=== PATIENT | female | born 1930 | race Caucasian/White ===

== ENCOUNTER 2017-02-18 10:22 | Observation (INO) | payer MEDICARE, BC ==
[~2017-02-18] VITALS: Ht 165.1 cm; Wt 67.3 kg
[~2017-02-18 10:22] MED LIST: ALEVE220 M1 PO; AMOXICILLIN/CL875 MG OR; ASPIRIN EC81 MG PO; ASPIRIN325 MG; BACTRIM DS1 TAB PO; BOOSTRIX IM; CIPROFLOXACN500 MG PO; FIBER FORMULA; HORMONE REPLACEMENT; INVANZ1 GM IJ; MACROBID100 MG PO; METAMUCIL0.52 GM PO; METAMUCIL1.7 G1 PO; MULTIVITAMI1 OR; MULTIVITAMI9 PO; PLAVIX75 MG PO; PRAVASTATIN SOD20 MG PO; PREVACID; PROBIOTIC1 TAB PO; TESSALON200 MG PO; TET/DIP TOX1 ML IM; WHEAT DEXTRIN PO; ZITHROMAX500 MG PO
[2017-02-18 11:27] LABS: URINE BILIRUBIN - DIPSTICK NEGATIVE (NEGATIVE); URINE BLOOD DIPSTICK NEGATIVE (NEGATIVE); URINE COLOR YELLOW; URINE GLUCOSE - DIPSTICK NEGATIVE (NEGATIVE); URINE KETONE NEGATIVE (NEGATIVE); URINE LEUK ESTERASE NEGATIVE (NEGATIVE); URINE NITRITE - DIPSTICK NEGATIVE (Negative); URINE PH 7.5 (4.5-8.0); URINE PROTEIN - DIPSTICK NEGATIVE (NEG-TRACE); URINE UROBILINOGEN - DIPSTICK 0.2 E.U./dL (0.2)
[2017-02-18 11:30] LABS: URINE CLARITY CLEAR
[2017-02-18 11:34] LABS: ALBUMIN 4.2 g/dL (3.2-5.0); ALKALINE PHOSPHATASE 75 u/l (38-126); ANION GAP 14 (6-22 (CALC)); BILIRUBIN, TOTAL 0.6 mg/dL (0.0-1.4); BUN 18 mg/dL (8-23); BUN/CREATININE RATIO 28 (12-20 (CALC)); CALCIUM 9.1 mg/dL (8.4-10.2); CARBON DIOXIDE 27 mmol/l (22-30); CHLORIDE 104 mmol/l (95-108); CREATININE 0.6 mg/dL (0.5-1.0); GFR > 60 ML/MIN (>=60 (CALC)); GFR FOR AFR.AMER. > 60 ML/MIN (>=60 (CALC)); GLUCOSE 119 mg/dL (82-115); SGOT/AST 38 u/l (9-36); SGPT/ALT 29 u/l (11-66); SODIUM 141 mmol/l (137-146); TOTAL PROTEIN 6.8 g/dL (6.3-8.2)
[2017-02-18 11:35] LABS: HEMATOCRIT 43.6 % (37.0-47.0); HEMOGLOBIN 14.8 g/dl (12.0-16.0); IMMATURE GRANULOCYTES 0.7 % (0.0-1.0); MEAN CELL VOLUME 88.8 fL CALC (80.0-100.0); MEAN CORPUSCULAR HGB 30.1 pG CALC (26.0-32.0); MEAN CORPUSCULAR HGB CONC 33.9 g/L CALC (32.0-36.0); NEUT# 2.46 thou/uL (2.00-7.15); RED BLOOD COUNT 4.91 mill/uL (4.20-5.60); RED CELL DISTRI WIDTH 13.5 % (11.5-15.5)
[2017-02-18 11:46] LABS: MYOGLOBIN 35 ng/mL (0 - 62)
[2017-02-18 14:01] VITALS: BP 142/77
[2017-02-18 14:29] LABS: CHOLESTEROL HDL RATIO 3.7 (<4.4 (CALC)); MAGNESIUM 1.7 mg/dL (1.6-2.3)
[2017-02-18 15:29] VITALS: BP 137/74
[2017-02-18 20:30] VITALS: BP 103/64
[2017-02-19 04:00] VITALS: BP 105/57
[2017-02-19 05:20] LABS: HEMATOCRIT 39.6 % (37.0-47.0); HEMOGLOBIN 13.6 g/dl (12.0-16.0); IMMATURE GRANULOCYTES 0.2 % (0.0-1.0); MEAN CELL VOLUME 88.8 fL CALC (80.0-100.0); MEAN CORPUSCULAR HGB 30.5 pG CALC (26.0-32.0); MEAN CORPUSCULAR HGB CONC 34.3 g/L CALC (32.0-36.0); NEUT# 2.29 thou/uL (2.00-7.15); RED BLOOD COUNT 4.46 mill/uL (4.20-5.60); RED CELL DISTRI WIDTH 13.7 % (11.5-15.5)
[2017-02-19 05:36] LABS: ANION GAP 11 (6-22 (CALC)); BUN 16 mg/dL (8-23); BUN/CREATININE RATIO 24 (12-20 (CALC)); CALCIUM 8.7 mg/dL (8.4-10.2); CARBON DIOXIDE 28 mmol/l (22-30); CHLORIDE 108 mmol/l (95-108); CREATININE 0.7 mg/dL (0.5-1.0); GFR > 60 ML/MIN (>=60 (CALC)); GFR FOR AFR.AMER. > 60 ML/MIN (>=60 (CALC)); GLUCOSE 87 mg/dL (82-115); MAGNESIUM 1.8 mg/dL (1.6-2.3); POTASSIUM 4.1 mmol/l (3.5-5.1); SODIUM 144 mmol/l (137-146)
[2017-02-19 08:27] VITALS: BP 122/55
[2017-02-19 11:38] VITALS: BP 127/61
[2017-02-19 15:42] VITALS: BP 126/57
[2017-02-19] MEDS ORDERED: ALDACTONE25 MG PO (17:28)
[2017-02-19] MEDS ORDERED: LIPITOR10 M1 PO (21:03)
== END 2017-02-19 18:00 | disposition home or self-care (01) ==
LOC: ED 10:22 → ED-I 11:45 → ED 11:45 → ED-I 12:04 → ED 12:29 → MS2 12:30
PROVIDERS: Emergency Medicine; Nurse Practitioner Family; ADMIT Internal Medicine; ATTEND Internal Medicine
DX: G45.9 Transient cerebral ischemic attack, unspecified (principal); M19.90 Unspecified osteoarthritis, unspecified site; I69.954 Hemiplegia and hemiparesis following unspecified cerebrovascular disease affecting left non-dominant side; I25.10 Atherosclerotic heart disease of native coronary artery without angina pectoris; E78.5 Hyperlipidemia, unspecified; I44.7 Left bundle-branch block, unspecified; I25.2 Old myocardial infarction; Z79.82 Long term (current) use of aspirin; Z87.440 Personal history of urinary (tract) infections; Z87.891 Personal history of nicotine dependence